=== PATIENT | male | born 1950 | race Caucasian/White ===

== ENCOUNTER 2016-06-06 15:07 | Emergency (ER) | payer MEDICARE ==
--- NOTE | 2016-06-06 16:15 | RAD ---
PORTABLE CHEST: 06/06/16 HISTORY: Chest pain. The lungs appear clear of infiltrate. No evidence of vascular congestion or edema. Heart size is wit hin normal limits. IMPRESSION: No acute process. POS: [facility]
[2016-06-06 16:23] LABS: #Basophils 0.1 thou/uL (0.0-0.2); #Eosinphils 0.2 thou/uL (0.0-0.7); #Lymphocytes 2.5 thou/uL (1.20-3.40); #Monocytes 0.5 thou/uL (0.11-0.59); #Neutrophils 5.8 thou/uL (1.40-6.50); %Basophils 0.9 % (0.0-1.0); %Eosinophils 2.4 % (0.0-10.0); %Lymphocytes 27.6 % (21.0-51.0); %Monocytes 5.7 % (0.0-10.0); %Neutrophils 63.4 % (42.0-75.0); Hemoglobin 13.9 g/dL (14.0-18.0); Mean Corpuscular HGB CONC 34.7 g/dL (32.0-36.0); Mean Corpuscular Hemoglobin 32.3 pg (27.0-31.0); Mean Corpuscular Volume 93.1 fl (80.0-94.0); Mean Platelet Volume 6.9 fL (7.4-10.4); Platelet Count 192 thou/uL (130-400); RBC Distribution Width 11.1 % (11.5-14.5); White Blood Cell (WBC) Count 9.2 thou/uL (4.8-10.8)
[2016-06-06 16:40] LABS: ALT (SGPT) 18 U/L (0-55); AST (SGOT) 15 U/L (5-34); Alkaline Phosphatase 73 U/L (40-150); Anion Gap 11 mmol/L (10-20); BUN (Urea Nitrogen) 9 mg/dL (8.4-25.7); Bilirubin, Total 0.4 mg/dL (0.2-1.2); CK (CPK) 133 U/L (30-200); CKMB 2.7 ng/mL (0-6.6); Calc. Creatinine Clearance 0 mL/min (70-130); Calcium 9.3 mg/dL (7.8-10.44); Carbon Dioxide 26 mmol/L (23-31); Chloride 102 mmol/L (98-107); Estimated GFR-MDRD 78; Globulin 2.9 g/dL (2.4-3.5); Glucose 111 mg/dL (80-115); Potassium 3.5 mmol/L (3.5-5.1); Protein, Total 6.9 g/dL (5.8-8.1); Sodium 135 mmol/L (136-145); Troponin I Less than 0.010 ng/mL (< 0.028)
[2016-06-06] MEDS ORDERED: Metoprolol Tartrate 25 MG TAB ONE (17:59)
== END 2016-06-06 18:04 | disposition home or self-care (01) ==
LOC: NAV ERS 15:07
DX: I49.3 Ventricular premature depolarization (principal)
CPT/HCPCS: 71010; 80053; 82553; 84484; 85025; 93005

== ENCOUNTER 2017-01-22 11:09 | Emergency (ER) | payer MEDICARE ==
[2017-01-22] MEDS ORDERED: Ibuprofen 800 MG TAB ONE (11:47)
--- NOTE | 2017-01-22 12:31 | RAD ---
LEFT FOOT THREE VIEWS: HISTORY: A 66-year-old female with left foot pain following an injury. Known avascular necrosis, left hip. FINDINGS: Calcaneal plantar and Achilles enthesophytes. Arthrosis changes of the foot, including the first met atarsophalangeal joint. No acute fracture or dislocation. IMPRESSION: Degenerative changes, left foot. No fracture or dislocation. POS: [facility]
--- NOTE | 2017-01-22 12:35 | RAD ---
THREE VIEWS LEFT HAND: HISTORY: Fever. Avascular necrosis. Fall. Pain. FINDINGS: Joint spaces are preserved. No fracture. No malalignment. IMPRESSION: No fracture. POS: [facility]
--- NOTE | 2017-01-22 12:38 | RAD ---
CHEST PA AND LATERAL: History: 66-year-old male with history of chest pain, primarily left chest wall pain. FINDINGS: Heart size is within normal limits. The lungs are clear. No pneumonia, edema, or pleural effusion. IMPRESSION: No acute intrathoracic disease. POS: [facility]
--- NOTE | 2017-01-22 12:40 | RAD ---
FRONTAL RADIOGRAPH PELVIS: 01/22/2017 HISTORY: History of avascular necrosis of the left hip. Fall and hit a tractor two months ago. Bilateral hip pain. COMPARISON: None. FINDINGS: There is abnormal sclerosis involving the femoral head on the left, consistent with the provided hist ory of left hip avascular necrosis. There is moderate superior joint space narrowing and lateral danielle tabular osteophyte formation. There is no widening of the pubic symphysis or the sacroiliac joints. There is prominent right hip degenerative change with significant superior joint space height loss, a s well as subchondral sclerosis involving the acetabular roof and femoral head. There is no acute fr acture or dislocation. IMPRESSION: 1. No radiographic evidence of fracture or dislocation. 2. Prominent degenerative change involves the bilateral hips. There is abnormal sclerosis of the le ft femoral head, suggesting avascular necrosis. There may be early changes of avascular necrosis on the right as well. Recommend a pelvic MRI on a nonemergent basis to better assess for bilateral avas cular necrosis. POS: [facility]
== END 2017-01-22 12:48 | disposition home or self-care (01) ==
LOC: NAV ERS 11:09
DX: S66.919A Strain of unspecified muscle, fascia and tendon at wrist and hand level, unspecified hand, initial encounter (principal); S76.919A Strain of unspecified muscles, fascia and tendons at thigh level, unspecified thigh, initial encounter; I10 Essential (primary) hypertension; M87.9 Osteonecrosis, unspecified; Z79.899 Other long term (current) drug therapy; W01.0XXA Fall on same level from slipping, tripping and stumbling without subsequent striking against object, initial encounter
CPT/HCPCS: 71020; 72170

== ENCOUNTER 2023-11-13 07:52 | Emergency (ER) | payer MEDICARE, MEDICAID ==
[2023-11-13] MEDS ORDERED: Aspirin Chewable 81 MG TAB ONE (08:11)
[2023-11-13 08:32] LABS: #Eosinphils 0.2 thou/uL (0.0-0.7); #Lymphocytes 1.1 thou/uL (1.20-3.40); #Monocytes 0.5 thou/uL (0.11-0.59); #Neutrophils 3.3 thou/uL (1.40-6.50); %Basophils 0.7 % (0.0-1.0); %Eosinophils 4.5 % (0.0-10.0); %Lymphocytes 20.6 % (21.0-51.0); %Monocytes 9.6 % (0.0-10.0); %Neutrophils 64.7 % (42.0-75.0); Hematocrit 32.1 % (42.0-52.0); Hemoglobin 10.4 g/dL (14.0-18.0); Mean Corpuscular HGB CONC 32.3 g/dL (32.0-36.0); Mean Corpuscular Hemoglobin 30.1 pg (27.0-31.0); Mean Corpuscular Volume 93.3 fl (78.0-98.0); Mean Platelet Volume 6.9 fL (7.4-10.4); Platelet Count 122 10x3/uL (130-400); Red Blood Cell (RBC) Count 3.44 mill/uL (4.70-6.10); White Blood Cell (WBC) Count 5.2 10x3/uL (4.8-10.8)
[2023-11-13 08:32] LABS: ALT (SGPT) 12 U/L (8-55); AST (SGOT) 15 U/L (5-34); Albumin 3.7 g/dL (3.4-4.8); Alkaline Phosphatase 72 U/L (40-110); Anion Gap 12 mmol/L (10-20); BUN (Urea Nitrogen) 15 mg/dL (8.4-25.7); Bilirubin, Total 0.5 mg/dL (0.2-1.2); Calc. Creatinine Clearance 0 mL/min (70-130); Calcium 9.3 mg/dL (7.8-10.44); Carbon Dioxide 25 mmol/L (23-31); Chloride 101 mmol/L (98-107); Estimated GFR 94; Globulin 2.5 g/dL (2.4-3.5); Glucose 130 mg/dL (83-110); Potassium 3.5 mmol/L (3.5-5.1); Protein, Total 6.2 g/dL (5.8-8.1); Sodium 134 mmol/L (136-145)
[2023-11-13 08:38] LABS: Troponin I Less than 0.010 ng/mL (< 0.028)
== END 2023-11-13 09:30 | disposition home or self-care (01) ==
LOC: NAV ERS 07:52
DX: D61.818 Other pancytopenia (principal); I10 Essential (primary) hypertension; E78.5 Hyperlipidemia, unspecified; Z79.899 Other long term (current) drug therapy; Z79.82 Long term (current) use of aspirin
CPT/HCPCS: 36415; 71045; 80053; 83880; 84484; 85025; 93005